=== PATIENT | male | born 1990 | race Caucasian/White ===

== ENCOUNTER 2017-07-16 14:19 | Emergency (ER) | payer OTHER ==
[~2017-07-16] VITALS: Ht 185.4 cm; Wt 81.7 kg
[2017-07-16] MEDS ORDERED: NORCO 10-325 T1 EACH PO (17:03)
== END 2017-07-16 17:55 | disposition home or self-care (01) ==
LOC: ED 14:19
DX: S42.101A Fracture of unspecified part of scapula, right shoulder, initial encounter for closed fracture (principal); S09.90XA Unspecified injury of head, initial encounter; V80.010A Animal-rider injured by fall from or being thrown from horse in noncollision accident, initial encounter
CPT/HCPCS: 70450; 73030; 80053; 85025; 99284; G0480